=== PATIENT | female | born 1990 | race African-American/Black ===

== ENCOUNTER 2021-05-20 09:33 | Inpatient (IN) ==
[2021-05-20 11:37] LABS: Basophils % 0.5 % (0.0-0.8); Eosinophils % 0.7 % (0.00-10.9); Hematocrit 39.9 VOL% (35.7-47.0); Hemoglobin 13.1 GM/DL (12.0-16.0); Immature Granulocytes % 0.3 %; Immature Granulocytes Absolute 0.02 #; Lymphocytes # 2.4 10*3/uL (1.4-4.0); Lymphocytes % 40.2 % (21.3-54.2); Mean Corpuscular HGB Conc 32.8 GM/DL (32-36); Mean Corpuscular Volume 90.3 FL (87-102); Mean Platelet Volume 9.3 FL (9.6-12.0); Monocytes % 8.1 % (1.7-12.7); Neutrophils % 50.2 % (38.7-73.9); Platelet Count 272 T/CUMM (130-400); Red Blood Count 4.42 MC/CUMM (3.8-5.5); Red Cell Distribution Width 13.8 % (9.3-17.3); White Blood Count 6.1 T/CUMM (4-12)
[2021-05-20 11:52] LABS: Bilirubin,Urine Negative (Negative); Blood, Urine Large mg/dL (Negative); Glucose,Urine (UA) Negative (Negative); Ketones,Urine Negative (Negative); Mucus,Urine Occasional /LPF (Occasional); Nitrite,Urine Negative (Negative); Protein,Urine 100 MG/DL; RBC,Urine 8 /HPF (0-4); Squamous Epithelial Cell,Urine Many /HPF (0-10); Urine Appearance CLOUDY (Clear); Urine Color Red (Yellow); Urine Specific Gravity 1.014 (1.001-1.035); Urine Urobilinogen < 2.0 EU/DL (0.2-1.0)
[2021-05-20] MEDS ORDERED: SODIUM CHLORIDE 0.9% 1,000 ML IV STA (13:05)
[2021-05-20] MEDS ORDERED: SUCCINYLCHOLINE 200 MG/10 ML VIAL ONE (15:24)
[2021-05-20] MEDS ORDERED: fentaNYL 100 MCG/2 ML VIAL ONE ×2 (15:24→15:57)
[2021-05-20] MEDS ORDERED: LIDOCAINE 2% 5 ML VIAL ONE (15:25)
[2021-05-20] MEDS ORDERED: ROCURONIUM 50 MG/5 ML VIAL IV ONE (15:25)
[2021-05-20] MEDS ORDERED: ONDANSETRON 4 MG/2 ML VIAL ONE (15:25)
[2021-05-20] MEDS ORDERED: DEXAMETHASONE 4 MG/1 ML VIAL ONE (15:25)
[2021-05-20] MEDS ORDERED: propofoL 200 MG/20 ML VIAL IV ONE (15:25)
[2021-05-20] MEDS ORDERED: SEVOFLURANE 1 UNIT/15 MINUTE INH ONE ×3 (15:25→16:20)
[2021-05-20] MEDS ORDERED: FAMOTIDINE 20 MG/2 ML VIAL IV ONE (15:35)
[2021-05-20] MEDS ORDERED: PHENYLEPHRINE 1 MG/10 ML SYRINGE IV ONE (16:14)
[2021-05-20] MEDS ORDERED: TISSUE ADHESIVE 1 EACH APPLICATOR TOP ONE (16:20)
[2021-05-20] MEDS ORDERED: KETOROLAC 30 MG/1 ML VIAL ONE (16:22)
[2021-05-20] MEDS ORDERED: ACETAMINOPHEN 325 MG TABLET PO PRN (16:31)
[2021-05-20] MEDS ORDERED: MAGNESIUM HYDROXIDE SUSP 30 ML UDCUP PO PRN (16:31)
[2021-05-20] MEDS ORDERED: BISACODYL 10 MG SUPP RECTAL PRN (16:31)
[2021-05-20] MEDS ORDERED: BENZOCAINE/MENTHOL LOZENGE 18/BOX PO PRN (16:31)
[2021-05-20] MEDS ORDERED: DOCUSATE SODIUM 100 MG CAPSULE PO PRN (16:31)
[2021-05-20] MEDS ORDERED: ONDANSETRON 4 MG/2 ML VIAL IV PRN ×2 (16:31→16:55)
[2021-05-20] MEDS: HYDROmorphone 2 MG/1 ML VIAL IV PRN ×2 (16:59→17:04)
[2021-05-20] MEDS ORDERED: LACTATED RINGERS 1,000 ML IV SCH (17:00)
[2021-05-20] MEDS ORDERED: SIMETHICONE CHEW 80 MG TABLET PO PRN (21:24)
[2021-05-20] MEDS ORDERED: KETOROLAC 30 MG/1 ML VIAL IV PRN (22:09)
[2021-05-20] MEDS: IBUPROFEN 800 MG TABLET PO PRN (22:37)
[2021-05-21] MEDS ORDERED: diphenhydrAMINE CAP 25 MG CAPSULE ONE ×2 (01:02→01:03)
[2021-05-21] MEDS ORDERED: diphenhydrAMINE CAP 25 MG CAPSULE PO PRN (01:05)
[2021-05-21 06:50] LABS: Basophils % 0.1 % (0.0-0.8); Hematocrit 34.9 VOL% (35.7-47.0); Hemoglobin 11.5 GM/DL (12.0-16.0); Immature Granulocytes % 0.3 %; Immature Granulocytes Absolute 0.03 #; Lymphocytes # 1.9 10*3/uL (1.4-4.0); Lymphocytes % 19.2 % (21.3-54.2); Mean Corpuscular Volume 89.5 FL (87-102); Mean Platelet Volume 9.7 FL (9.6-12.0); Monocytes % 9.6 % (1.7-12.7); Neutrophils % 70.8 % (38.7-73.9); Platelet Count 263 T/CUMM (130-400); Red Cell Distribution Width 13.9 % (9.3-17.3); White Blood Count 9.9 T/CUMM (4-12)
[2021-05-21] MEDS: IBUPROFEN 800 MG TABLET PO PRN (16:01)
[2021-05-21 18:00] VITALS: BP 88/55
== END 2021-05-21 18:40 | disposition home or self-care (01) | DRG 819 ==
LOC: N.ED 09:33 → N.OB 15:45 → N.ED 15:45 → N.EDINP 16:30 → N.OB 17:25
PROVIDERS: ADMIT Obstetrics & Gynecology; ATTEND Obstetrics & Gynecology